=== PATIENT | female | born 1955 | race Caucasian/White ===

== ENCOUNTER 2018-11-12 07:27 | Day surgery (SDC) | payer BC ==
[~2018-11-12] VITALS: Ht 165.1 cm; Wt 82.5 kg
[~2018-11-12 07:27] MED LIST: CONEST.3; LORA10ER
[2018-11-12] MEDS ORDERED: CENTRUM SILVER1 EAC2 (07:49)
[2018-11-12] MEDS ORDERED: CALCIUM 600 +1 EA11 (07:49)
[2018-11-12] MEDS ORDERED: LANS30EC (07:50)
[2018-11-12] MEDS ORDERED: DICL25ER (07:50)
[2018-11-12] MEDS ORDERED: GLUC500 (07:50)
[2018-11-12] MEDS ORDERED: MSM1000 M1 (07:50)
[2018-11-12] MEDS ORDERED: Adipex-P37.5 M1 (07:51)
[2018-11-12] MEDS ORDERED: MAGNESIUM OXID500 MG (07:51)
== END 2018-11-12 09:19 | disposition home or self-care (01) ==
LOC: ORSCSDS 07:27
PROVIDERS: Internal Medicine Gastroenterology
PROC: 0DB68ZX Excision of Stomach, Via Natural or Artificial Opening Endoscopic, Diagnostic (ICD-10-PCS; principal; 2018-11-12 08:45)
DX: K92.1 Melena (principal); D64.9 Anemia, unspecified; K29.70 Gastritis, unspecified, without bleeding; K31.7 Polyp of stomach and duodenum; E78.00 Pure hypercholesterolemia, unspecified; E66.9 Obesity, unspecified; Z68.30 Body mass index [BMI] 30.0-30.9, adult; Z79.899 Other long term (current) drug therapy
CPT/HCPCS: 88305; 88342; J2704; J7120

== ENCOUNTER 2019-03-14 10:54 | Day surgery (SDC) | payer BC ==
[~2019-03-14] VITALS: Ht 170.2 cm; Wt 83.2 kg
[~2019-03-14 10:54] MED LIST changes: +Adipex-P37.5 M1; +CALCIUM 600 +1 EA11; +CENTRUM SILVER1 EAC2; +DICL25ER; +GLUC500; +LANS30EC; +MAGNESIUM OXID500 MG; +MSM1000 M1
--- NOTE | 2019-03-14 13:16 | NUR ---
03/14/19 1316 Lali Lambert (Vanessa BEDSIDE INJECTED CONDUCTED BY DR. HAWKINS TIME-OUT & SITE CHECK CONDUCTED. 2MG VERSED IVP GIVEN PER DR. OLIVAS. DR. HAWKINS INJECTED 10ML 2% LIDOCAINE WITH EPI 1:100,000. PT TOLERATED WELL, PULSE OX ON THROUGHOUT PROCEDURE. NO ISSUES OR COMPLICATIONS.
--- NOTE | 2019-03-14 15:15 | NUR ---
03/14/19 1515 Victorina Porter DC INSTRUCTIONS LEFT AT [facility]. [facility] CALLED PT AND SPOKE TO PT'S TAWNYA. PT AND REQUESTED TO HAVE INSTRUCTIONS EMAILED TO THEM. INSTRUCTIONS EMAILED AT THIS TIME.
== END 2019-03-14 14:09 | disposition home or self-care (01) ==
LOC: ORSCSDS 10:54
PROVIDERS: Orthopaedic Surgery
PROC: 01N54ZZ Release Median Nerve, Percutaneous Endoscopic Approach (ICD-10-PCS; principal; 2019-03-14 12:30)
DX: G56.01 Carpal tunnel syndrome, right upper limb (principal); Z79.899 Other long term (current) drug therapy
CPT/HCPCS: J2250; J3010; J7120

== ENCOUNTER 2020-11-26 16:20 | Emergency (ER) | payer MEDICARE, OTHER ==
[~2020-11-26] VITALS: Ht 170.2 cm; Wt 78.0 kg
== END 2020-11-26 18:51 | disposition home or self-care (01) ==
LOC: ER 16:20
DX: S01.81XA Laceration without foreign body of other part of head, initial encounter (principal); E78.5 Hyperlipidemia, unspecified; M19.90 Unspecified osteoarthritis, unspecified site; Z23 Encounter for immunization; W18.30XA Fall on same level, unspecified, initial encounter
CPT/HCPCS: 12015; 70450; 90471; 90714; 99283-25

== ENCOUNTER 2021-07-29 09:05 | Day surgery (SDC) | payer MEDICARE, OTHER ==
[~2021-07-29] VITALS: Ht 167.6 cm; Wt 80.3 kg
[~2021-07-29 09:05] MED LIST changes: +ATOR10 PO
== END 2021-07-29 11:26 | disposition home or self-care (01) ==
LOC: ORSCSDS 09:05
PROVIDERS: Surgery
PROC: 0DJD8ZZ Inspection of Lower Intestinal Tract, Via Natural or Artificial Opening Endoscopic (ICD-10-PCS; principal; 2021-07-29 10:30)
DX: Z12.11 Encounter for screening for malignant neoplasm of colon (principal); K57.30 Diverticulosis of large intestine without perforation or abscess without bleeding; R03.0 Elevated blood-pressure reading, without diagnosis of hypertension; E78.00 Pure hypercholesterolemia, unspecified; E78.5 Hyperlipidemia, unspecified; Z79.899 Other long term (current) drug therapy
CPT/HCPCS: J2704; J7120

== ENCOUNTER → 2021-12-28 | Outpatient (CLI) | payer MEDICARE, OTHER | END | disposition home or self-care (01) | DX: N39.0 Urinary tract infection, site not specified (principal) ==

== ENCOUNTER → 2022-08-30 | Outpatient (CLI) | payer MEDICARE, OTHER | LOC: LAB 12:54 → LAB SHORT 12:54 | DX: L60.3 Nail dystrophy (principal) | CPT/HCPCS: 87102; 87106 ==

== ENCOUNTER → 2022-09-16 | Outpatient (CLI) | payer MEDICARE, OTHER | END | disposition home or self-care (01) | LOC: LAB 16:17 | DX: M79.89 Other specified soft tissue disorders (principal); R60.0 Localized edema ==